=== PATIENT | male | born 1980 | race Caucasian/White ===

== ENCOUNTER → 2017-08-03 | Outpatient (REF) | payer OTHER | LOC: M LAB REF 17:50 | PROVIDERS: ATTEND Nurse Practitioner Adult Health | DX: I10 Essential (primary) hypertension (principal) ==

== ENCOUNTER → 2021-11-07 | Outpatient (CLI) | payer OTHER ==
[~2021-11-07] MED LIST: PROHANCE 279.3MG/ML 15ML VIAL As Ordered ONE; PROHANCE 279.3MG/ML 5ML VIAL As Ordered ONE
== END ==
LOC: M RAD 07:31
PROVIDERS: ATTEND Nurse Practitioner Adult Health
DX: Z83.49 Family history of other endocrine, nutritional and metabolic diseases (principal)

== ENCOUNTER → 2021-11-15 | Outpatient (CLI) | payer OTHER ==
[~2021-11-15] MED LIST changes: -PROHANCE 279.3MG/ML 15ML VIAL As Ordered ONE; +PROHANCE 279.3MG/ML 15ML VIAL ONE; -PROHANCE 279.3MG/ML 5ML VIAL As Ordered ONE; +PROHANCE 279.3MG/ML 5ML VIAL ONE
== END ==
LOC: M PLAIMG 13:05
PROVIDERS: ATTEND Nurse Practitioner Adult Health
DX: Z83.49 Family history of other endocrine, nutritional and metabolic diseases (principal)

== ENCOUNTER → 2022-01-24 | Outpatient (CLI) | payer OTHER | LOC: M WUC 11:51 | PROVIDERS: ATTEND Physician Assistant | DX: S60.221A Contusion of right hand, initial encounter (principal); S61.401A Unspecified open wound of right hand, initial encounter; X58.XXXA Exposure to other specified factors, initial encounter; Y92.89 Other specified places as the place of occurrence of the external cause; Y93.89 Activity, other specified; Y99.8 Other external cause status ==

== ENCOUNTER → 2022-05-07 | Outpatient (REF) | payer OTHER | LOC: M LAB REF 16:09 | PROVIDERS: ATTEND Nurse Practitioner Adult Health | DX: I10 Essential (primary) hypertension (principal) ==

== ENCOUNTER → 2022-05-09 | Outpatient (REF) | payer OTHER | LOC: M LAB REF 12:09 | PROVIDERS: ATTEND Nurse Practitioner Adult Health | DX: I10 Essential (primary) hypertension (principal) ==

== ENCOUNTER → 2023-01-06 | Outpatient (CLI) | payer OTHER | LOC: M WUC 12:05 | PROVIDERS: ATTEND Nurse Practitioner Adult Health | DX: R20.0 Anesthesia of skin (principal) ==

== ENCOUNTER → 2023-01-09 | Outpatient (CLI) | payer OTHER | LOC: M PLAIMG 09:19 | PROVIDERS: ATTEND Nurse Practitioner Adult Health | DX: Z83.49 Family history of other endocrine, nutritional and metabolic diseases (principal) | CPT/HCPCS: 71552; A9576 ==

== ENCOUNTER → 2023-01-19 | Outpatient (CLI) | payer OTHER | LOC: M PLAIMG 10:07 | PROVIDERS: ATTEND Nurse Practitioner Adult Health | DX: Z83.49 Family history of other endocrine, nutritional and metabolic diseases (principal) ==

== ENCOUNTER → 2023-04-10 | Outpatient (CLI) | payer OTHER | LOC: M WUC 11:32 | PROVIDERS: ATTEND Nurse Practitioner Family | DX: M25.571 Pain in right ankle and joints of right foot (principal) ==

== ENCOUNTER → 2024-01-28 | Outpatient (CLI) | payer OTHER ==
[~2024-01-28] MED LIST changes: +PROHANCE 279.3MG/ML 15ML VIAL As Ordered ONE; -PROHANCE 279.3MG/ML 15ML VIAL ONE; +PROHANCE 279.3MG/ML 5ML VIAL As Ordered ONE; -PROHANCE 279.3MG/ML 5ML VIAL ONE
== END ==
LOC: M RAD 06:52
PROVIDERS: ATTEND Nurse Practitioner Adult Health
DX: Z83.49 Family history of other endocrine, nutritional and metabolic diseases (principal)

== ENCOUNTER → 2024-02-04 | Outpatient (CLI) | payer OTHER | LOC: M RAD 06:44 | PROVIDERS: ATTEND Nurse Practitioner Adult Health | DX: Z83.49 Family history of other endocrine, nutritional and metabolic diseases (principal) ==